=== PATIENT | male | born 1940 | race Two or more races ===

== ENCOUNTER 2023-11-19 06:45 | Day surgery (SDC) | payer OTHER | END 2023-11-19 14:00 | disposition home or self-care (01) | LOC: AMB-ENDOS 06:45 → CIR.AMB 14:30 | PROVIDERS: ATTEND Colon & Rectal Surgery | DX: K63.5 Polyp of colon (principal); K57.30 Diverticulosis of large intestine without perforation or abscess without bleeding; D12.2 Benign neoplasm of ascending colon; K92.1 Melena; B20 Human immunodeficiency virus [HIV] disease; Z86.010 Personal history of colon polyps ==

== ENCOUNTER 2024-01-07 11:00 | Inpatient (IN) | payer OTHER ==
[~2024-01-07] VITALS: Ht 170.2 cm; Wt 63.5 kg
[2024-01-07] MEDS ORDERED: GLIPIZIDE XL10 MG (13:48)
[2024-01-07] MEDS ORDERED: ZESTRIL20 MG (13:48)
[2024-01-07] MEDS ORDERED: EZALLOR SPRINKL10 MG PO (13:48)
[2024-01-07] MEDS ORDERED: GENVOYA TABLET1 EACH (13:49)
[2024-01-14] MEDS ORDERED: CEFTRIAXONE SODIUM 2,000 MG VIAL ONE (07:35)
[2024-01-14] MEDS ORDERED: METRONIDAZOLE/SODIUM CHLORIDE 500 MG/100 ML PIGGYBACK IV ONE (07:35)
[2024-01-14] MEDS ORDERED: PANTOPRAZOLE SO40 MG (09:28)
[2024-01-14] MEDS ORDERED: TAMSULOSIN HCL0.4 MG (09:28)
[2024-01-14] MEDS ORDERED: FAMOTIDINE20 MG (09:28)
[2024-01-14] MEDS ORDERED: ALLOPURINOL100 MG (09:28)
[2024-01-14] MEDS ORDERED: PERSANTINE25 MG (09:28)
[2024-01-14] MEDS ORDERED: ST. JOSEPH ASPI81 M2 (09:29)
[2024-01-14] MEDS ORDERED: FERROUS SULFAT325 MG (09:29)
[2024-01-14] MEDS ORDERED: FINASTERIDE5 MG (09:29)
[2024-01-14] MEDS ORDERED: FOLIC ACID1 MG (09:29)
[2024-01-14] MEDS ORDERED: BUPIVACAINE HCL/MPF 0.5% 30ML VIAL ONE (12:19)
[2024-01-14] MEDS ORDERED: LIDOCAINE HCL 1%/EPINEPHRINE 20ML VIAL IJ ONE (12:19)
[2024-01-14] MEDS ORDERED: RINGERS SOLUTION,LACTATED 1,000 ML IV SCH (14:30)
[2024-01-14] MEDS ORDERED: ONDANSETRON HCL 2 MG/ML VIAL IV PRN (14:30)
[2024-01-14] MEDS ORDERED: OxyCODONE HCL 5 MG TABLET (ROXICODONE) PO PRN (14:30)
[2024-01-14] MEDS ORDERED: MORPHINE SULFATE 4 MG/ML CARTRIDGE IV PRN (14:30)
[2024-01-14 16:17] LABS: HEMATOCRIT 38.7 % (39.0-48.0); HEMOGLOBIN 12.7 g/dL (13-16.00); MEAN CORPUSCULAR HEMOGLOBIN 31.2 pg (27.00-32.0); MEAN CORPUSCULAR HGB CONC 32.8 g/dl (32.0-36.0); PLATELET COUNT 171 K/uL (150-450); RED BLOOD COUNT 4.07 M/uL (4.00-6.00); RED CELL DISTRIBUTION WIDTH 14.2 % (11.5-14.5)
[2024-01-14] MEDS ORDERED: MORPHINE SULFATE 4 MG/ML VIAL IV ONE ×2 (16:55→18:40)
[2024-01-14] MEDS ORDERED: SIMETHICONE 125 MG CAPSULE PO SCH (17:00)
[2024-01-14] MEDS ORDERED: GABAPENTIN 300 MG CAPSULE PO SCH (17:00)
[2024-01-14] MEDS ORDERED: HYOSCYAMINE SULFATE 0.125 MG TAB.SUBL SL SCH (17:00)
[2024-01-14] MEDS ORDERED: CELECOXIB 200 MG CAPSULE PO SCH (17:00)
[2024-01-14] MEDS ORDERED: METOCLOPRAMIDE HCL 5 MG/ML VIAL IV SCH (17:00)
[2024-01-14] MEDS ORDERED: POLYETHYLENE GLYCOL 3350 17 GM BLIST.PACK PO SCH (17:00)
[2024-01-14] MEDS ORDERED: ENALAPRILAT DIHYDRATE 1.25 MG/ML VIAL IV PRN (17:15)
[2024-01-14] MEDS ORDERED: ACETAMINOPHEN 500 MG GEL..CAP PO SCH (20:00)
[2024-01-14] MEDS ORDERED: FAMOTIDINE/PF 20 MG/2 ML VIAL ONE (20:38)
[2024-01-14] MEDS ORDERED: TAMSULOSIN HCL 0.4 MG CAP PO ONE (20:38)
[2024-01-14] MEDS ORDERED: SIMETHICONE 125 MG CAPSULE PO ONE (20:38)
[2024-01-14] MEDS ORDERED: ACETAMINOPHEN 500 MG GEL..CAP PO ONE (20:45)
[2024-01-14] MEDS ORDERED: FAMOTIDINE/PF 20 MG/2 ML VIAL IV PUSH SCH (21:00)
[2024-01-14] MEDS ORDERED: FINASTERIDE 5 MG TABLET PO SCH (21:00)
[2024-01-14] MEDS ORDERED: TAMSULOSIN HCL 0.4 MG CAP PO SCH (21:00)
[2024-01-14 21:16] VITALS: BP 189/85; O2SAT 97
[2024-01-15 00:08] LABS: ABG PH 7.398 (7.35-7.45); ABG PO2 66.7 mmHg (80-100); ABG pCO2 41.2 mmHg (35-45); BASE EXCESS 0 mmol/l; BICARBONATE 24.9 mmol/l (23-25); Tco2 26.1 mmol/l
[2024-01-15 00:09] LABS: allen test SATISFACTORY; o2 21 %; puncture site RADIAL RIGHT
[2024-01-15 00:12] LABS: SaO2 92.9 %
[2024-01-15 01:00] VITALS: BP 156/69; O2SAT 97
[2024-01-15] MEDS ORDERED: hydrALAZINE HCL 20 MG VIAL IV PRN (04:30)
[2024-01-15 06:27] LABS: HEMATOCRIT 36.8 % (39.0-48.0); HEMOGLOBIN 12.2 g/dL (13-16.00); MEAN CELL VOLUME 94.8 fL (80.0-100.00); MEAN CORPUSCULAR HEMOGLOBIN 31.5 pg (27.00-32.0); MEAN CORPUSCULAR HGB CONC 33.3 g/dl (32.0-36.0); PLATELET COUNT 163 K/uL (150-450); RED BLOOD COUNT 3.88 M/uL (4.00-6.00)
[2024-01-15 06:55] LABS: CALCIUM 8.4 mg/dL (8.5-10.1); CREATININE SERUM 1.33 mg/dL (0.70-1.30); GFR 51.48; MAGNESIUM 1.8 mg/dL (1.8-2.4); PHOSPHOROUS 3.5 mg/dL (2.5-4.9); POTASSIUM 4.45 mEq/L (3.5-5.1)
[2024-01-15 08:25] VITALS: BP 120/63; O2SAT 95
[2024-01-15] MEDS ORDERED: ALLOPURINOL 100 MG TABLET PO SCH (09:00)
[2024-01-15] MEDS ORDERED: LISINOPRIL 20 MG TABLET PO SCH (09:00)
[2024-01-15] MEDS ORDERED: LACTULOSE 20 G/30 ML BLIST.PACK PO SCH (09:00)
[2024-01-15] MEDS ORDERED: LACTOBACILLUS ACIDOPHILUS 1 CAP CAP PO SCH (09:00)
[2024-01-15] MEDS ORDERED: DEXTROSE 50 % IN WATER 0.5 G/ML DISP.SYRIN IV PRN (11:15)
[2024-01-15] MEDS ORDERED: INSULIN LISPRO 1,000 UNIT/10 ML UNITS SUBCUTANEO PRN (11:15)
[2024-01-15] MEDS ORDERED: ENOXAPARIN SODIUM 40 MG/0.4 ML SYRINGE SUBCUTANEO SCH (17:00)
[2024-01-15] MEDS ORDERED: PATIENTS OWN MEDICATION (MEDICAMENTO EN PISO) PO SCH (17:00)
[2024-01-15 17:01] VITALS: BP 109/63; O2SAT 96
[2024-01-16 01:21] VITALS: BP 129/69; O2SAT 92
[2024-01-16 07:18] LABS: HEMATOCRIT 36.5 % (39.0-48.0); HEMOGLOBIN 12.1 g/dL (13-16.00); MEAN CORPUSCULAR HEMOGLOBIN 31.8 pg (27.00-32.0); MEAN CORPUSCULAR HGB CONC 33.1 g/dl (32.0-36.0); PLATELET COUNT 151 K/uL (150-450); RED CELL DISTRIBUTION WIDTH 14.1 % (11.5-14.5)
[2024-01-16 08:00] VITALS: BP 156/77; O2SAT 98
[2024-01-16 08:10] LABS: CALCIUM 8.8 mg/dL (8.5-10.1); CREATININE SERUM 1.13 mg/dL (0.70-1.30); GFR 62.13; MAGNESIUM 1.9 mg/dL (1.8-2.4); PHOSPHOROUS 2.3 mg/dL (2.5-4.9); POTASSIUM 5.08 mEq/L (3.5-5.1)
[2024-01-16] MEDS ORDERED: ENOXAPARIN SODIUM 40 MG/0.4 ML SYRINGE SUBCUTANEO SCH (09:00)
[2024-01-16] MEDS ORDERED: PIPERACILLIN/TAZOBACTAM SODIUM 3.375 GM in DEXTROSE 5 % IN WATER 100 ML IV SCH (12:27)
[2024-01-16] MEDS ORDERED: POTASSIUM PHOS,M-BASIC-D-BASIC 3 MM/ML VIAL IV ONE (13:00)
[2024-01-16 15:34] VITALS: BP 149/82; O2SAT 180
[2024-01-17 01:12] VITALS: BP 124/79; O2SAT 90
[2024-01-17 08:00] VITALS: BP 121/57; O2SAT 96
[2024-01-17] MEDS ORDERED: FAMOTIDINE/PF 20 MG/2 ML VIAL IV PUSH SCH (09:00)
[2024-01-17] MEDS ORDERED: LACTULOSE 20 G/30 ML BLIST.PACK PO NR (09:03)
[2024-01-17] MEDS ORDERED: MINERAL OIL 30 ML BLIST.PACK PO NR (09:03)
[2024-01-17] MEDS ORDERED: MAGNESIUM HYDROXIDE 30 ML BLIST.PACK PO NR (09:04)
[2024-01-17] MEDS ORDERED: DEXTROSE 5%-WATER 100ML IV.SOLN ONE (11:57)
[2024-01-17 16:15] VITALS: BP 118/78; O2SAT 95
[2024-01-17] MEDS ORDERED: INSULIN GLARGINE,HUM.REC.ANLOG 1,000 UNITS/10 ML UNITS SUBCUTANEO SCH (17:00)
[2024-01-18 00:16] VITALS: BP 107/69; O2SAT 98
[2024-01-18] MEDS ORDERED: TRAM1TAB98 PO (09:01)
[2024-01-18] MEDS ORDERED: PEPCID AC20 MG PO (09:09)
[2024-01-18] MEDS ORDERED: HYOSCYAMINE0.125 M1 SL (09:09)
== END 2024-01-18 11:04 | disposition home or self-care (01) | DRG 330 ==
LOC: SURG 01-14 07:00 → O/R 01-14 08:42 → SURG 01-14 08:42
PROVIDERS: Internal Medicine Geriatric Medicine; ADMIT Colon & Rectal Surgery; ATTEND Colon & Rectal Surgery
PROC: 07BC4ZX Excision of Pelvis Lymphatic, Percutaneous Endoscopic Approach, Diagnostic (ICD-10-PCS; 2024-01-14)
PROC: 0DBF4ZZ Excision of Right Large Intestine, Percutaneous Endoscopic Approach (ICD-10-PCS; principal; 2024-01-14 07:00)
DX: C18.2 Malignant neoplasm of ascending colon (principal); K92.1 Melena